=== PATIENT | male | born 1935 | race Caucasian/White ===

== ENCOUNTER 2016-10-06 17:04 | Emergency (ER) | payer OTHER ==
[~2016-10-06] VITALS: Wt 63.0 kg
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
--- NOTE | 2016-10-07 00:27 | RADRPT ---
PROCEDURE: CT Brain without contrast. CLINICAL INDICATION: Headache. TECHNIQUE: A multiplanar CT of the brain was performed on a CT scanner utilizing axial imaging fro m the skull base through the vertex without IV contrast. The CTDIvol is 45.01 mGy and the DLP is 81 0.25 mGycm. One or more of the following dose reduction techniques were utilized: Automated exposu re control, adjustment of the mA and/or kV according to patient size, use of iterative reconstructio n technique. COMPARISON: None FINDINGS: No evidence of intracranial hemorrhage or abnormal extra-axial fluid collection. Marked patchy periventricular low attenuation compatible with sequelae of chronic microvascular isch emic injury. Prominence of the ventricles and subarachnoid spaces compatible with moderate atrophy. Encephalomalacia of the medial left occipital lobe suggestive of remote infarct. Preservation of th e remaining giang-white differentiation. The posterior fossa contents, brainstem, craniocervical junction, orbits, pituitary axis, paranasal sinuses, mastoid air cells, and calvarium are unremarkable. IMPRESSION: 1. No intracranial hemorrhage or acute intracranial. 2. Remote infarct of the right occipital lobe. 3. Marked chronic microvascular ischemic changes in the deep white matter and age-related atrophy. RPTAT:AAJJ Physician Quiana Date Time Electronically viewed and signed by Physician Quiana on 10/07/2016 00:27 DILIP/
[2016-10-07] MEDS ORDERED: APR50 PO (00:35)
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
[2016-10-07 00:56] VITALS: BP 117/69; PULSE 58; RESP 18
== END 2016-10-07 00:57 | disposition home or self-care (01) ==
LOC: E/R 17:04
DX: R51 Headache (principal); R40.2252 Coma scale, best verbal response, oriented, at arrival to emergency department; I10 Essential (primary) hypertension; R40.2142 Coma scale, eyes open, spontaneous, at arrival to emergency department; R40.2362 Coma scale, best motor response, obeys commands, at arrival to emergency department
CPT/HCPCS: 70450; 71010; 93005